=== PATIENT | female | born 2005 | race Caucasian/White ===

== ENCOUNTER → 2024-12-19 14:04 | Outpatient (REF) | payer OTHER, SELFPAY | LOC: HWRAD 14:04 | PROVIDERS: ATTENDING PHYSICIAN Nurse Practitioner Family; FAMILY PHYSICIAN Internal Medicine | DX: Z34.91 Encounter for supervision of normal pregnancy, unspecified, first trimester (principal) | CPT/HCPCS: 76801 ==

== ENCOUNTER → 2025-01-18 08:17 | Outpatient (REF) | payer OTHER, SELFPAY | LOC: PNTC 08:17 | PROVIDERS: ATTENDING PHYSICIAN Obstetrics & Gynecology | DX: Z36.0 Encounter for antenatal screening for chromosomal anomalies (principal); Z36.82 Encounter for antenatal screening for nuchal translucency | CPT/HCPCS: 76801; 76813 ==

== ENCOUNTER → 2025-03-13 16:04 | Outpatient (REF) | payer OTHER, SELFPAY | LOC: PNTC 16:04 | PROVIDERS: ATTENDING PHYSICIAN Obstetrics & Gynecology | DX: Z34.82 Encounter for supervision of other normal pregnancy, second trimester (principal) | CPT/HCPCS: 76811; 76817 ==

== ENCOUNTER → 2025-03-30 08:36 | Outpatient (REF) | payer OTHER, SELFPAY | LOC: OHS 08:36 | PROVIDERS: ATTENDING PHYSICIAN Nurse Practitioner Family | DX: Z23 Encounter for immunization (principal) | CPT/HCPCS: 36415; 86480; 86706 ==

== ENCOUNTER 2025-07-31 17:12 | Inpatient (IN) | payer OTHER, SELFPAY ==
[2025-07-31 17:50] LABS: Hematocrit 32.4 % (37.0-47.0); Hemoglobin 10.9 g/dL (12.0-16.0); Mean Corp Hgb Conc. 33.6 g/dL (33.0-37.0); Mean Corpuscular Volume 88.5 fL (81.0-99.0); Nucleated Red Blood Cells % 0 %; Platelet Count 143 10^3/uL (130-400); Red Cell Dist. Width 13.7 % (11.5-14.5)
[2025-07-31 18:00] VITALS: BP 136/93
[2025-07-31] MEDS: CYTOTEC 25 MICROGRAM VAG (19:33)
[2025-08-01] MEDS: CYTOTEC 25 MICROGRAM PO ×2 (00:11→03:58)
--- NOTE | 2025-08-01 03:01 | DOWNTIME ---
There was a [employer] Downtime on 08/01/2025 from 0100 to 08/01/2025 at 0255. Downtime documentation of patient's care, including medication administrations, has been reconciled in the electronic record per guidelines. Refer to the
patient's paper chart under the miscellaneous tab to see printed paper medication records and downtime forms.
[2025-08-01] MEDS: LR 1000 IV ×4 (08:10→22:39)
[2025-08-01] MEDS: CYTOTEC PO ×4 (08:10→22:39)
[2025-08-01] MEDS: PITOCIN 30 UNITS/NSS 500 ML IV (08:10)
[2025-08-01 09:44] VITALS: BMI 27.8
[2025-08-01] MEDS: STADOL 1 MG IV ×2 (14:52→16:09)
[2025-08-01] MEDS: SUBLIMAZE 100 MCG EPIDURAL (17:34)
[2025-08-01] MEDS: FENTANYL/BUPIVACAINE 100 EPIDURAL (17:34)
[2025-08-02] MEDS: FENTANYL/BUPIVACAINE 100 EPIDURAL (01:54)
[2025-08-02] MEDS: PITOCIN 30 UNITS/NSS 500 ML IV (03:09)
[2025-08-02] MEDS: TRANEXAMIC ACID 100 IV (03:32)
[2025-08-02] MEDS: METHERGINE INJECTION 0.2 MG IM (03:36)
[2025-08-02] MEDS: CYTOTEC 800 MCG RECTAL (03:38)
[2025-08-02] MEDS: LR 1000 IV (04:06)
[2025-08-02 04:25] LABS: APTT 26.8 Sec (23.4-35.0); INR 0.96; PT 13.3 Sec (11.4-14.6)
[2025-08-02 04:26] LABS: Fibrinogen 472 MG/DL (199-459)
[2025-08-02] MEDS: CYTOTEC PO ×2 (04:30)
[2025-08-02] MEDS: ANCEF 10 IV (04:34)
[2025-08-02 04:37] LABS: ALT (SGPT) 14 U/L (0-35); AST (SGOT) 22 U/L (14-36); Albumin 2.8 g/dl (3.5-5.0); Alkaline Phosphatase 127 U/L (38-126); Blood Urea Nitrogen 8 mg/dl (7-17); Calcium 8.0 mg/dl (8.4-10.2); Carbon Dioxide 22 mmol/L (22-30); Chloride 104 mmol/L (98-107); Estimated Creatinine Clearance 116 ml/min; Glucose 100 mg/dl (70-99); Potassium 3.6 mmol/L (3.5-5.1); Sodium 129 mmol/L (135-145); Total Protein 5.5 g/dl (6.3-8.2); eGFR > 60.00
[2025-08-02 04:41] LABS: Hematocrit 30.2 % (37.0-47.0); Hemoglobin 10.2 g/dL (12.0-16.0); Mean Corp Hgb Conc. 33.8 g/dL (33.0-37.0); Mean Corpuscular Volume 90.7 fL (81.0-99.0); Nucleated Red Blood Cells % 0 %; Platelet Count 124 10^3/uL (130-400); Red Cell Dist. Width 13.9 % (11.5-14.5)
[2025-08-02] MEDS: MOTRIN 600 MG PO ×3 (04:50→17:45)
[2025-08-02] MEDS: TYLENOL 650 MG PO ×4 (07:38→22:05)
[2025-08-02] MEDS: PRENATAL PLUS 1 TABLET PO (07:39)
[2025-08-02] MEDS: COLACE 100 MG PO ×2 (07:39→20:10)
[2025-08-03] MEDS: MOTRIN 600 MG PO ×4 (00:08→20:58)
[2025-08-03] MEDS: TYLENOL 650 MG PO ×4 (04:44→21:01)
[2025-08-03 05:30] LABS: Hematocrit 24.9 % (37.0-47.0); Hemoglobin 8.1 g/dL (12.0-16.0); Mean Corp Hgb Conc. 32.5 g/dL (33.0-37.0); Mean Corpuscular Volume 92.9 fL (81.0-99.0); Platelet Count 120 10^3/uL (130-400); Red Cell Dist. Width 14.5 % (11.5-14.5)
[2025-08-03] MEDS: PRENATAL PLUS 1 TABLET PO (09:23)
[2025-08-03] MEDS: COLACE 100 MG PO ×3 (09:24→20:03)
[2025-08-03] MEDS: FEOSOL 325 MG PO (09:24)
[2025-08-03 16:34] LABS: Syphilis/T. pallidum Ab Reflex Negative (Negative)
[2025-08-03] MEDS: HYDROCORTISONE 2.5% OINTMENT 1 APPLIC TOPICAL (21:19)
[2025-08-04] MEDS: TYLENOL 650 MG PO ×2 (04:12→08:16)
[2025-08-04] MEDS: MOTRIN 600 MG PO ×2 (04:12→12:05)
[2025-08-04 05:45] LABS: Platelet Count 124 10^3/uL (130-400)
[2025-08-04] MEDS: PRENATAL PLUS 1 TABLET PO (08:15)
[2025-08-04] MEDS: FEOSOL 325 MG PO (08:16)
[2025-08-04] MEDS: HYDROCORTISONE 2.5% OINTMENT 1 APPLIC TOPICAL (11:00)
== END 2025-08-04 14:13 | disposition home or self-care (01) | DRG 768 ==
LOC: LDRP 17:12
PROVIDERS: Obstetrics & Gynecology; Student in an Organized Health Care Education/Training Program; ADMITTING PHYSICIAN Obstetrics & Gynecology
PROC: 3E0P7VZ Introduction of Hormone into Female Reproductive, Via Natural or Artificial Opening (ICD-10-PCS; 2025-07-31)
PROC: 3E033VJ Introduction of Other Hormone into Peripheral Vein, Percutaneous Approach (ICD-10-PCS; 2025-08-01)
PROC: 10907ZC Drainage of Amniotic Fluid, Therapeutic from Products of Conception, Via Natural or Artificial Opening (ICD-10-PCS; 2025-08-01)
PROC: 10E0XZZ Delivery of Products of Conception, External Approach (ICD-10-PCS; 2025-08-02)
PROC: 0KQM0ZZ Repair Perineum Muscle, Open Approach (ICD-10-PCS; 2025-08-02)
PROC: 0W3R7ZZ Control Bleeding in Genitourinary Tract, Via Natural or Artificial Opening (ICD-10-PCS; 2025-08-02)
PROC: 0UQMXZZ Repair Vulva, External Approach (ICD-10-PCS; 2025-08-02)
DX: O48.0 Post-term pregnancy (principal); Z37.0 Single live birth; Z3A.41 41 weeks gestation of pregnancy; O70.1 Second degree perineal laceration during delivery; O70.0 First degree perineal laceration during delivery
CPT/HCPCS: 80053; 85025; 85027; 85049; 85384; 85610; 85730; 86780; 86850; 86900; 86901